=== PATIENT | male | born 1975 | race Caucasian/White ===

== ENCOUNTER → 2020-11-03 | Outpatient (CLI) | payer OTHER ==
--- NOTE | 2020-11-04 09:59 | KCIC ---
Exam Date: 11/03/2020 3:20 PM MRI RIGHT LOWER EXTREMITY W/O Indication: Reason: RIGHT FOOT NEUROPATHY / Spl. Instructions: Ordered as entire foot. / History: Chr onic, generalized all over foot pain for yrs. Denies swelling.. TECHNIQUE: Multiplanar MR imaging of the entire right foot was performed without intravenous contrast . COMPARISON: Radiographs from October 15, 2020 FINDINGS: Visualized osseous structures demonstrate normal marrow signal without evidence for marrow edema, acu te fracture, or stress change. Visualized flexor, extensor, and peroneal tendons are intact. Achilles tendon is intact. The anterior and posterior talofibular and tibiofibular ligaments are intact. Calcaneofibular ligame nt is intact. Deltoid and spring ligaments are intact. Lisfranc ligament is intact. Sinus Tarsi and plantar fascia are within normal limits. IMPRESSION: No acute abnormality identified in the right foot. Electronically signed by: Dario Ortez MD (11/04/2020 9:57 AM) [facility]
== END ==
LOC: KCIC MRI 15:10
PROVIDERS: ATTEND Podiatrist Foot & Ankle Surgery
DX: G62.9 Polyneuropathy, unspecified (principal)
CPT/HCPCS: 73718